=== PATIENT | female | born 1960 | race American Indian/Alaskan Native ===

== ENCOUNTER 2017-05-26 13:58 | Observation (INO) | payer OTHER ==
--- NOTE | 2017-05-26 14:45 | C.PDOC ---
History Of Present Illness 57 y/o female presents to the ER complaining of intermittent episodes of left sided numbness confined to the left face, left hand, and left lower extremities. Patient reports that she has difficulty with speech and loss of fluency for the past several days. Patient reports that the episodes last for about 1 hour. Patient states that she has an onset of generalized headache and 1 episode of vomiting today.Patient denies that she has history of diabetes and non-compliance with her medications. Patient reports that she takes Aspirin daily. Chief Complaint (Nursing): Weakness/Neurological Deficit History Per: Patient History/Exam Limitations: no limitations Onset/Duration Of Symptoms: Days Current Symptoms Are (Timing): Still Present Severity: Moderate Past Medical History Reviewed: Historical Data, Nursing Documentation, Vital Signs Vital Signs: Last Vital Signs Temp 98 F 05/26/17 19:13 Pulse 71 05/26/17 21:54 Resp 20 05/26/17 19:13 BP 121/83 05/26/17 21:54 Pulse Ox 98 05/26/17 19:13 - Medical History PMH: CHF, HTN Surgical History: No Surg Hx Family History: States: No Known Family Hx - Social History Hx Alcohol Use: Yes Hx Substance Use: No - Immunization History Hx Tetanus Toxoid Vaccination: No Hx Influenza Vaccination: Yes Hx Pneumococcal Vaccination: No Review Of Systems Except As Marked, All Systems Reviewed And Found Negative. Constitutional: Negative for: Fever, Chills Neurological: Positive for: Numbness (left-sided numbness), Headache. Negative for: Weakness, Dizziness Physical Exam - Physical Exam Appears: Non-toxic, No Acute Distress Skin: Normal Color, Warm Head: Atraumatic, Normacephalic Eye(s): bilateral: Normal Inspection, PERRL Nose: Normal Oral Mucosa: Moist Neck: Supple Chest: Symmetrical Cardiovascular: Rhythm Regular Respiratory: Normal Breath Sounds, No Accessory Muscle Use, No Rales, No Rhonchi , No Wheezing Gastrointestinal/Abdominal: Normal Exam, Soft, No Tenderness Neurological/Psych: Oriented x3, Normal Speech, Normal Cognition, Normal Cranial Nerves, Cerebellar Signs, Other (immediate and short memory intact) Gait: Other (not tested) ED Course And Treatment - Laboratory Results Result Diagrams: 05/26/17 14:57 05/26/17 14:57 ECG: Interpreted By Me, Viewed By Me ECG Rhythm: Sinus Rhythm Rate From EC (BPM) O2 Sat by Pulse Oximetry: 99 (RA) Pulse Ox Interpretation: Normal - Radiology CXR: Viewed By Me, Read By Radiologist CXR Interpretation: Yes: No Acute Disease - CT Scan/US CT - Head Other Rad Studies (CT/US): Read By Radiologist, Radiology Report Reviewed CT/US Interpretation: PROCEDURE: CT HEAD WITHOUT CONTRAST. HISTORY: TIA, WEAKNESS. COMPARISON: None available. TECHNIQUE: Axial computed tomography images were obtained through the head/brain without intravenous contrast. Radiation dose: Total exam DLP = 897.06 mGy-cm. This CT exam was performed using one or more of the following dose reduction techniques: Automated exposure control, adjustment of the mA and/or kV according to patient size, and/ or use of iterative reconstruction technique. FINDINGS: HEMORRHAGE: No intracranial hemorrhage. BRAIN: Normal saba-white matter differentiation and density are appreciated throughout the cerebrum and cerebellum with the brainstem appearing unremarkable as well. There is no mass effect. There is no suspicious extra-axial fluid collection and the midline brain anatomy appears diffusely unremarkable. VENTRICLES: Unremarkable. No hydrocephalus. CALVARIUM: Unremarkable. PARANASAL SINUSES: Unremarkable as visualized. No significant inflammatory changes. MASTOID AIR CELLS: Unremarkable as visualized. No inflammatory changes. OTHER FINDINGS: None. IMPRESSION: No acute intracranial findings are appreciated by standard CT criteria in this unenhanced exam. Follow-up CT or MRI are available given clinical history of potential brain infarction/TIA. Findings discussed with Dr. Inman 2017 at 3:30 p.m.. CTA - Head Other Rad Studies (CT/US): Read By Radiologist, Radiology Report Reviewed CT/US Interpretation: PROCEDURE: CTA HEAD AND NECK WITH CONTRAST. HISTORY: CODE STROKE ALERT. COMPARISON: None available. TECHNIQUE: Initial noncontrast head CT was performed. Subsequently, CT angiogram of the head and neck were performed after the intravenous administration of 80 mL of Omnipaque 350. Contiguous 1.5mm thick images were obtained in the axial plane of the neck. 2-D coronal and sagittal MPR images were obtained. Imaging postprocessing was performed with 3-D images also obtained. A delayed contrast head CT was also obtained. This CT exam was performed using one or more of the following dose reduction techniques: Automated exposure control, adjustment of the mA and/ or kV according to patient size, and/or use of iterative reconstruction technique. Contrast dose: 100 mL Visipaque. Radiation dose: Total exam DLP = 611.97 mGy-cm. FINDINGS: HEAD: Right: The intracranial internal carotid artery, and anterior and middle cerebral arteries are widely patent. Left: The intracranial internal carotid artery, and anterior and middle cerebral arteries are widely patent. Posterior circulation: The visualized intracranial vertebral arteries, basilar artery and posterior cerebral arteries are widely patent. Ther is no endoluminal filling defect to suggest thrombus. There is no intracranial saccular aneurysm. NECK: There is a three vessel aortic arch. There is no stenosis at the origins of the great vessels at the level of the aortic arch. Right Carotid: On the right, the common carotid, internal carotid and external carotid arteries are widely patent. There is no hemodynamically significant stenosis in the internal carotid arteries by NASCET criteria. Left Carotid: On the left, the common carotid, internal carotid and external carotid arteries are widely patent.There is no hemodynamically significant stenosis in the internal carotid arteries by NASCET criteria. The vertebral arteries are widely patent. The the vertebral arteries are codominant. The visualized soft tissues of the neck are normal. The visualized brain and cervical spine are within normal limits. The lung apices are clear. There is a multinodular thyroid gland. IMPRESSION: No CTA evidence for intraluminal thrombus, definite significant stenosis or occlusion. No hemodynamically significant stenosis in the internal carotid arteries by NASCET criteria. - Physician Consult Information Physician Contacted: Outcome Of Conversation: concurs that the patient may have TIA and that the NIH Stroke Scale is 0. She reccommended that an MRI be ordered. NIHSS Stroke Scale - Date/Time Evaluation Performed Date Performed: 05/26/17 Time Performed: 14:45 When Was NIHSS Performed: Baseline - How Severe is the Stoke Level of Consciousness: 0=Alert LOC to Questions: 0=Both comments correct LOC to commands: 0=Obeys both correctly Best Gaze: 0=Normal Visual: 0=No visual loss Facial: 0=Normal Motor Arm - Left: 0=No drift Motor Arm - Right: 0=No drift Motor Leg - Left: 0=No drift Motor Leg - Right: 0=No drift Limb Ataxia: 0=Absent Sensory: 0=Normal Best Language: 0=No aphasia Dysarthia: 0=Normal articulation Extinction & Inattention (Neglect): 0=Normal, no object Score: 0 Severity Of Stroke: 0= No Stroke Medical Decision Making Medical Decision Making: Impression: History compelling for TIA Plan: -Admit patient for workup Test Results -Head CT- neg for acute stroke Disposition Doctor Will See Patient In The: Hospital - Disposition Disposition: HOSPITALIZED Disposition Time: 15:32 Condition: FAIR - Clinical Impression Clinical Impression: TIA (transient ischemic attack) - Scribe Statement The provider has reviewed the documentation as recorded by the Oliver Martinez Provider Attestation: All medical record entries made by the Oliver were at my direction and personally dictated by me. I have reviewed the chart and agree that the record accurately reflects my personal performance of the history, physical exam, medical decision making, and the department course for this patient. I have also personally directed, reviewed, and agree with the discharge instructions and disposition.
[2017-05-26 15:03] LABS: BASO % 0.4 % (0.0-2.0); EOS # 0.1 K/uL (0.0-0.7); EOS % 1.4 % (0.0-4.0); HEMOGLOBIN 12.5 g/dL (11.0-16.0); LYMPH # 1.1 K/uL (1.0-4.3); LYMPH % 18.2 % (20.0-40.0); MEAN CELL VOLUME 83.4 fL (81.0-99.0); MEAN CORPUSCULAR HEMOGLOBIN 27.2 pg (27.0-31.0); MEAN CORPUSCULAR HGB CONC 32.6 g/dL (33.0-37.0); MEAN PLATELET VOLUME 8.5 fL (7.2-11.7); MONO # 0.4 K/uL (0.0-0.8); MONO % 7.3 % (0.0-10.0); NEUT # 4.4 K/uL (1.8-7.0); NEUT % 72.7 % (50.0-75.0); RBC 4.58 Mil/uL (3.80-5.20); RED CELL DISTRIBUTION WIDTH 17.5 % (11.5-14.5)
[2017-05-26] MEDS ORDERED: Sodium Chloride 0.9% 1,000 ML ONE (15:07)
[2017-05-26] MEDS ORDERED: Iodixanol 320 MG/ML 100 ML BOTTLE IV ONE (15:14)
[2017-05-26 15:16] LABS: INR 1.1; PROTHROMBIN TIME 12.3 SECONDS (9.7-12.2)
[2017-05-26 15:20] LABS: ALBUMIN 4.5 g/dL (3.5-5.0); ALT/SGPT 21 U/L (9-52); AST/SGOT 34 U/L (14-36); BLOOD UREA NITROGEN 26 mg/dL (7-17); CALCIUM 8.8 mg/dl (8.6-10.4); GFR AFRICAN-AMERICAN > 60; GFR NON-AFRICAN AMERICAN 51; HDL CHOLESTEROL 42 mg/dL (30-70)
[2017-05-26 15:30] LABS: B-TYPE NATRIURETIC PEPTIDE 101 pg/mL (0-900)
[2017-05-26 15:31] LABS: LDL CHOLESTEROL 120 mg/dL (0-129)
--- NOTE | 2017-05-26 15:37 | CT ---
PROCEDURE: CT HEAD WITHOUT CONTRAST. HISTORY: TIA, WEAKNESS COMPARISON: None available. TECHNIQUE: Axial computed tomography images were obtained through the head/brain without intravenous contrast. Radiation dose: Total exam DLP = 897.06 mGy-cm. This CT exam was performed using one or more of the following dose reduction techniques: Automated exposure control, adjustment of the mA and/or kV according to patient size, and/or use of iterative reconstruction technique. FINDINGS: HEMORRHAGE: No intracranial hemorrhage. BRAIN: Normal saba-white matter differentiation and density are appreciated throughout the cerebrum and cerebellum with the brainstem appearing unremarkable as well. There is no mass effect. There is no suspicious extra-axial fluid collection and the midline brain anatomy appears diffusely unremarkable. VENTRICLES: Unremarkable. No hydrocephalus. CALVARIUM: Unremarkable. PARANASAL SINUSES: Unremarkable as visualized. No significant inflammatory changes. MASTOID AIR CELLS: Unremarkable as visualized. No inflammatory changes. OTHER FINDINGS: None. IMPRESSION: No acute intracranial findings are appreciated by standard CT criteria in this unenhanced exam. Follow-up CT or MRI are available given clinical history of potential brain infarction/TIA. Findings discussed with Dr. Inman 05/26/2017 at 3:30 p.m..
--- NOTE | 2017-05-26 16:01 | CT ---
PROCEDURE: CTA HEAD AND NECK WITH CONTRAST HISTORY: CODE STROKE ALERT COMPARISON: None available. TECHNIQUE: Initial noncontrast head CT was performed. Subsequently, CT angiogram of the head and neck were performed after the intravenous administration of 80 mL of Omnipaque 350. Contiguous 1.5mm thick images were obtained in the axial plane of the neck. 2-D coronal and sagittal MPR images were obtained. Imaging postprocessing was performed with 3-D images also obtained. A delayed contrast head CT was also obtained. This CT exam was performed using one or more of the following dose reduction techniques: Automated exposure control, adjustment of the mA and/or kV according to patient size, and/or use of iterative reconstruction technique. Contrast dose: 100 mL Visipaque Radiation dose: Total exam DLP = 611.97 mGy-cm. FINDINGS: HEAD: Right: The intracranial internal carotid artery, and anterior and middle cerebral arteries are widely patent. Left: The intracranial internal carotid artery, and anterior and middle cerebral arteries are widely patent. Posterior circulation: The visualized intracranial vertebral arteries, basilar artery and posterior cerebral arteries are widely patent. Ther is no endoluminal filling defect to suggest thrombus. There is no intracranial saccular aneurysm. NECK: There is a three vessel aortic arch. There is no stenosis at the origins of the great vessels at the level of the aortic arch. Right Carotid: On the right, the common carotid, internal carotid and external carotid arteries are widely patent. There is no hemodynamically significant stenosis in the internal carotid arteries by NASCET criteria. Left Carotid: On the left, the common carotid, internal carotid and external carotid arteries are widely patent.There is no hemodynamically significant stenosis in the internal carotid arteries by NASCET criteria. The vertebral arteries are widely patent. The the vertebral arteries are codominant. The visualized soft tissues of the neck are normal. The visualized brain and cervical spine are within normal limits. The lung apices are clear. There is a multinodular thyroid gland. IMPRESSION: No CTA evidence for intraluminal thrombus, definite significant stenosis or occlusion. No hemodynamically significant stenosis in the internal carotid arteries by NASCET criteria.
--- NOTE | 2017-05-26 16:38 | RAD ---
HISTORY: TIA. Portable study 16:03. COMPARISON: No prior. FINDINGS: LUNGS: No active pulmonary disease. PLEURA: No significant pleural effusion identified, no pneumothorax apparent. CARDIOVASCULAR: No radiographic findings to suggest acute or significant cardiovascular disease. Incidental Finding(s): Postoperative changes related to sternotomy. OSSEOUS STRUCTURES: No significant abnormalities. VISUALIZED UPPER ABDOMEN: Normal. OTHER FINDINGS: None. IMPRESSION: No active disease.
--- NOTE | 2017-05-26 23:32 | CP.PCM.HP ---
History of Present Illness - History of Present Illness History of Present Illness: CC: Left arm/ leg and face numbness since 2 days HPI: 57 y/o AA female who had h/o MVR, HTN, Hyperlipidemia complaint with diet, medication and follow up at [facility] presents to the ER complaining of intermittent episodes of left sided numbness confined to the left face, left hand, and left lower extremities. Patient reports that she has difficulty with speech and loss of fluency for the past several days. Patient reports that the episodes last for about 1 hour. Patient states that she has an onset of generalized headache and 1 episode of vomiting today.Patient denies that she has history of diabetes and non-compliance with her medications. Patient reports that she takes Aspirin daily. Present on Admission - Present on Admission Any Indicators Present on Admission: Yes Review of Systems - Review of Systems Systems not reviewed;Unavailable: Acuity of Condition - Constitutional Constitutional: absent: As Per HPI, Anorexia, Chills, Daytime Sleepiness, Excessive Sweating, Fatigue, Fever, Frequent Falls, Headache, Increased Appetite , Lethargy, Malaise, Night Sweats, Snoring, Sleep Apnea, Weight Gain, Weight Loss, Weakness, Other - EENT Eyes: absent: As Per HPI, Blind Spots, Blurred Vision, Change in Vision, Decreased Night Vision, Diplopia, Discharge, Dry Eye, Exophthalmos, Floaters, Irritation, Itchy Eyes, Loss of Peripheral Vision, Pain, Photophobia, Requires Corrective Lenses, Sees Flashes, Spots in Vision, Tunnel Vision, Other Visual Disturbances, Loss of Vision, Other Ears: absent: As Per HPI, Decreased Hearing, Ear Discharge, Ear Pain, Tinnitus, Abnormal Hearing, Disequilibrium, Dizziness, Other Nose/Mouth/Throat: absent: As Per HPI, Epistaxis, Nasal Congestion, Nasal Discharge, Nasal Obstruction, Nasal Trauma, Nose Pain, Post Nasal Drip, Sinus Pain, Sinus Pressure, Bleeding Gums, Change in Voice, Dental Pain, Dry Mouth, Dysphagia, Halitosis, Hoarsness, Lip Swelling, Mouth Lesions, Mouth Pain, Odynophagia, Sore Throat, Throat Swelling, Tongue Swelling, Facial Pain, Neck Pain, Neck Mass, Other - Cardiovascular Cardiovascular: absent: As Per HPI, Acrocyanosis, Chest Pain, Chest Pain at Rest , Chest Pain with Activity, Claudication, Diaphoresis, Dyspnea, Dyspnea on Exertion, Edema, Irregular Heart Rhythm, Pain Radiating to Arm/Neck/Jaw, Leg Edema, Leg Ulcers, Lightheadedness, Orthopnea, Palpitations, Paroxysmal Nocturnal Dyspnea, Pedal Edema, Radiating Pain, Rapid Heart Rate, Slow Heart Rate, Syncope, Other - Respiratory Respiratory: absent: As Per HPI, Cough, Dyspnea, Hemoptysis, Dyspnea on Exertion , Wheezing, Snoring, Stridor, Pain on Inspiration, Chest Congestion, Excessive Mucous Production, Change in Mucous Color, Pain with Coughing, Other - Gastrointestinal Gastrointestinal: absent: As Per HPI, Abdominal Pain, Belching, Bloating, Change in Bowel Habits, Change in Stool Character, Coffee Ground Emesis, Constipation, Cramping, Diarrhea, Dyspepsia, Dysphagia, Early Satiety, Excessive Flatus, Fecal Incontinence, Heartburn, Hematemesis, Hematochezia, Loose Stools, Melena, Nausea, Odynophagia, Temesmus, Vomiting, Other - Neurological Neurological: Numbness, Focal Weakness, Tingling, Weakness - Psychiatric Psychiatric: absent: As Per HPI, Abnormal Sleep Pattern, Anhedonia, Anxiety, Auditory Hallucinations, Behavioral Changes, Change in Appetite, Change in Libido, Confusion, Depression, Difficulty Concentrating, Hallucinations, Homicidal Ideation, Hopelessness, Irritability, Memory Loss, Mood Swings, Panic Attacks, Paranoia, Suicidal Ideation, Visual Hallucinations, Tactile Hallucinations, Other Past Patient History - Past Medical History & Family History Past Medical History?: Yes - Past Social History Smoking Status: Never Smoked - CARDIAC Hx Cardiac Disorders: Yes Hx Congestive Heart Failure: Yes Hx Hypertension: Yes - PULMONARY Hx Respiratory Disorders: No - NEUROLOGICAL Hx Neurological Disorder: No - HEENT Hx HEENT Problems: No - RENAL Hx Chronic Kidney Disease: No - ENDOCRINE/METABOLIC Hx Endocrine Disorders: No - HEMATOLOGICAL/ONCOLOGICAL Hx Blood Disorders: No - INTEGUMENTARY Hx Dermatological Problems: No - MUSCULOSKELETAL/RHEUMATOLOGICAL Hx Musculoskeletal Disorders: No Hx Falls: No - GASTROINTESTINAL Hx Gastrointestinal Disorders: No - GENITOURINARY/GYNECOLOGICAL Hx Genitourinary Disorders: No - PSYCHIATRIC Hx Psychophysiologic Disorder: No Hx Substance Use: No - SURGICAL HISTORY Hx Surgeries: Yes Hx Section: Yes Hx Hysterectomy: Yes Hx Tubal Ligation: Yes Other/Comment: valve repair - ANESTHESIA Hx Anesthesia: Yes Hx Anesthesia Reactions: No Hx Malignant Hyperthermia: No Meds Allergies/Adverse Reactions: Allergies Allergy/AdvReac Type Severity Reaction Status Date / Time No Known Allergies Allergy Verified 05/26/17 14:20 Physical Exam - Constitutional Appears: No Acute Distress - Head Exam Head Exam: ATRAUMATIC, NORMAL INSPECTION, NORMOCEPHALIC - Eye Exam Eye Exam: EOMI, Normal appearance, PERRL Pupil Exam: NORMAL ACCOMODATION, PERRL - Respiratory Exam Respiratory Exam: Clear to Auscultation Bilateral, NORMAL BREATHING PATTERN Additional comments: midline scar of previous surgery - GI/Abdominal Exam GI & Abdominal Exam: Normal Bowel Sounds, Soft. absent: Tenderness - Neurological Exam Neurological exam: Alert, CN II-XII Intact, Normal Gait, Oriented x3, Reflexes Normal - Psychiatric Exam Psychiatric exam: Normal Affect, Normal Mood Results - Vital Signs Recent Vital Signs: Last Vital Signs Temp 98 F 05/26/17 19:13 Pulse 71 05/26/17 21:54 Resp 20 05/26/17 19:13 BP 121/83 05/26/17 21:54 Pulse Ox 98 05/26/17 19:13 - Labs Result Diagrams: 05/26/17 14:57 05/26/17 14:57 Labs: Laboratory Results - last 24 hr 05/26/17 05/26/17 05/26/17 14:57 14:57 14:57 WBC 6.0 RBC 4.58 Hgb 12.5 Hct 38.2 MCV 83.4 MCH 27.2 MCHC 32.6 L RDW 17.5 H Plt Count 254 MPV 8.5 Neut % (Auto) 72.7 Lymph % (Auto) 18.2 L [place] % (Auto) 7.3 Eos % (Auto) 1.4 Baso % (Auto) 0.4 Neut # 4.4 Lymph # 1.1 George # 0.4 Eos # 0.1 Baso # 0.0 PT 12.3 H INR 1.1 APTT 28 Sodium 137 Potassium 4.6 Chloride 102 Carbon Dioxide 24 Anion Gap 16 BUN 26 H Creatinine 1.1 Est GFR ( Amer) > 60 Est GFR (Non-Af Amer) 51 Random Glucose 112 H Hemoglobin A1c Calcium 8.8 Total Bilirubin 0.8 AST 34 ALT 21 Alkaline Phosphatase 58 Troponin I 0.0130 NT-Pro-B Natriuret Pep 101 Total Protein 8.8 H Albumin 4.5 Globulin 4.3 H Albumin/Globulin Ratio 1.0 Triglycerides 60 Cholesterol 190 LDL Cholesterol Direct 120 HDL Cholesterol 42 Blood Type Antibody Screen 05/26/17 05/26/17 14:57 14:59 WBC RBC Hgb Hct MCV MCH MCHC RDW Plt Count MPV Neut % (Auto) Lymph % (Auto) George % (Auto) Eos % (Auto) Baso % (Auto) Neut # Lymph # George # Eos # Baso # PT INR APTT Sodium Potassium Chloride Carbon Dioxide Anion Gap BUN Creatinine Est GFR ( Amer) Est GFR (Non-Af Amer) Random Glucose Hemoglobin A1c 6.4 Calcium Total Bilirubin AST ALT Alkaline Phosphatase Troponin I NT-Pro-B Natriuret Pep Total Protein Albumin Globulin Albumin/Globulin Ratio Triglycerides Cholesterol LDL Cholesterol Direct HDL Cholesterol Blood Type O POSITIVE Antibody Screen Negative Assessment & Plan (1) H/O mitral valve replacement Assessment and Plan: back in 2001 Status: Acute (2) HTN (hypertension) Status: Acute (3) Hyperlipidemia Status: Acute (4) TIA (transient ischemic attack) Status: Acute - Assessment and Plan (Free Text) Plan: ADMIT ECHO. CARDIOLOGY EVAL, NEURO check
[2017-05-27] MEDS ORDERED: Enoxaparin 40 mg Syringe SC SCH (10:00)
--- NOTE | 2017-05-27 13:09 | CP.PCM.CON ---
History of Present Illness - History of Present Illness History of Present Illness: 57 yr old woman who presented with subacute aphasia, over the last several days, and new onset left arm numbness and tingling since this morning at 9am, with all symptoms resolved by the time the patient arrived in the ER. Code stroke was called and since her deficits had resolved, we decided she was not a TPA candidate. She had an NIH stroke scale of 0 per my assessment and I was able to see her several minutes after she arrived in the ER. CT, CTA and MRI Brain were ordered as well as echo, dopplers. CT and CTA are normal. Patient's daughters were presented and they agreed that she was having dysarthria, on and off for several days. She denies headache, paraesthesias, nausea, vomiting, diarrhea, weakness or aphasia. PMH/PSH: Htn, MVR, Hyperlipidemia FH/SH: no tobacco, no etoh All: nkda ON exam: normal neuro exam. Past Patient History - Past Social History Smoking Status: Never Smoked - CARDIAC Hx Congestive Heart Failure: Yes Hx Hypertension: Yes - PSYCHIATRIC Hx Substance Use: No - SURGICAL HISTORY Hx Surgeries: Yes Hx Section: Yes Hx Hysterectomy: Yes Hx Tubal Ligation: Yes Other/Comment: valve repair - ANESTHESIA Hx Anesthesia: Yes Hx Anesthesia Reactions: No Hx Malignant Hyperthermia: No Meds Allergies/Adverse Reactions: Allergies Allergy/AdvReac Type Severity Reaction Status Date / Time No Known Allergies Allergy Verified 05/26/17 14:20 - Medications Medications: Current Medications Aspirin (Aspirin) 325 mg PO DAILY SITA Last Admin: 05/26/17 15:16 Dose: Not Given Results - Vital Signs Recent Vital Signs: Last Vital Signs Temp 98.6 F 05/26/17 14:14 Pulse 74 05/26/17 16:10 Resp 16 05/26/17 16:10 BP 121/77 05/26/17 16:10 Pulse Ox 99 05/26/17 17:02 - Labs Result Diagrams: 05/26/17 14:57 05/26/17 14:57 Labs: Laboratory Results - last 24 hr 05/26/17 05/26/17 05/26/17 14:57 14:57 14:57 WBC 6.0 RBC 4.58 Hgb 12.5 Hct 38.2 MCV 83.4 MCH 27.2 MCHC 32.6 L RDW 17.5 H Plt Count 254 MPV 8.5 Neut % (Auto) 72.7 Lymph % (Auto) 18.2 L [place] % (Auto) 7.3 Eos % (Auto) 1.4 Baso % (Auto) 0.4 Neut # 4.4 Lymph # 1.1 [place] # 0.4 Eos # 0.1 Baso # 0.0 PT 12.3 H INR 1.1 APTT 28 Sodium 137 Potassium 4.6 Chloride 102 Carbon Dioxide 24 Anion Gap 16 BUN 26 H Creatinine 1.1 Est GFR ( Amer) > 60 Est GFR (Non-Af Amer) 51 Random Glucose 112 H Hemoglobin A1c Calcium 8.8 Total Bilirubin 0.8 AST 34 ALT 21 Alkaline Phosphatase 58 Troponin I 0.0130 NT-Pro-B Natriuret Pep 101 Total Protein 8.8 H Albumin 4.5 Globulin 4.3 H Albumin/Globulin Ratio 1.0 Triglycerides 60 Cholesterol 190 LDL Cholesterol Direct 120 HDL Cholesterol 42 Blood Type Antibody Screen 05/26/17 05/26/17 14:57 14:59 WBC RBC Hgb Hct MCV MCH MCHC RDW Plt Count MPV Neut % (Auto) Lymph % (Auto) [place] % (Auto) Eos % (Auto) Baso % (Auto) Neut # Lymph # [place] # Eos # Baso # PT INR APTT Sodium Potassium Chloride Carbon Dioxide Anion Gap BUN Creatinine Est GFR ( Amer) Est GFR (Non-Af Amer) Random Glucose Hemoglobin A1c 6.4 Calcium Total Bilirubin AST ALT Alkaline Phosphatase Troponin I NT-Pro-B Natriuret Pep Total Protein Albumin Globulin Albumin/Globulin Ratio Triglycerides Cholesterol LDL Cholesterol Direct HDL Cholesterol Blood Type O POSITIVE Antibody Screen Negative Assessment & Plan - Assessment and Plan (Free Text) Assessment: 57 yr old woman with most likely ischemic event involving Right MCA territory , tia, resolved. She is high risk due to her cardiac history so we will do the stroke workup. Plan: 1. MRi Brain without contrast. 2. ECho 3. Carotid Dopplers. 4. Start aspirin 5. Hold bp meds and keep bp at 180-190/90 6. Iv fluids with normal saline at 100 ccs per hour. 7. Admit to telemetry Thank you for this interesting consult. We will follow Dr. Mohit Corrigan MD, DPN.
--- NOTE | 2017-05-27 14:24 | CP.PCM.PN ---
Subjective - Date & Time of Evaluation Date of Evaluation: 05/27/17 Time of Evaluation: 13:00 - Subjective Subjective: Neurology progress note for Dr. Wong: Patient was seen and examined at bedside today. Patient stated that she has had no symptoms of aphasia or weakness since these symptoms resolved in the ED. Patient stated that she refused the MRI because she wanted her human resource internship in the city to be the one to order the test. After further discussion the patient revealed that she has had a cardic valve replacement and has some sort of metal wire still left in her chest. She is unsure if this wire compatible with MRI imaging. It was suggested that she reach out to her human resource internship to see. She denies headache, paraesthesias, nausea, vomiting, diarrhea, weakness or aphasia. She is otherwise doing well. Objective - Vital Signs/Intake and Output Vital Signs (last 24 hours): Temp Pulse Resp BP Pulse Ox 98.3 F 85 20 117/79 97 05/27/17 10:35 05/27/17 10:35 05/27/17 07:10 05/27/17 10:36 05/27/17 10:35 Intake and Output: 05/27/17 05/27/17 06:59 18:59 Intake Total 240 Balance 240 - Medications Medications: Current Medications Aspirin (Aspirin) 325 mg PO DAILY [facility] Last Admin: 05/27/17 10:30 Dose: Not Given Aspirin (Ecotrin) 81 mg PO DAILY [facility] Last Admin: 05/27/17 10:37 Dose: 81 mg Carvedilol (Coreg) 25 mg PO BID [facility] Last Admin: 05/27/17 10:36 Dose: 25 mg Doxazosin Mesylate (Cardura) 8 mg PO [facility] Enoxaparin Sodium (Lovenox) 40 mg SC DAILY [facility] Last Admin: 05/27/17 10:37 Dose: Not Given Furosemide (Lasix) 40 mg PO DAILY [facility] Last Admin: 05/27/17 10:36 Dose: 40 mg Losartan Potassium (Cozaar) 50 mg PO DAILY [facility] Last Admin: 05/27/17 10:38 Dose: Not Given Spironolactone (Aldactone) 25 mg PO DAILY [facility] Last Admin: 05/27/17 10:36 Dose: 25 mg - Labs Labs: 05/26/17 14:57 05/26/17 14:57 PT 12.3 SECONDS (9.7-12.2) H 05/26/17 14:57 INR 1.1 05/26/17 14:57 APTT 28 SECONDS (21-34) 05/26/17 14:57 - Constitutional Appears: Non-toxic, No Acute Distress - Head Exam Head Exam: ATRAUMATIC, NORMAL INSPECTION - Eye Exam Eye Exam: EOMI. absent: Nystagmus Pupil Exam: NORMAL ACCOMODATION, PERRL - ENT Exam ENT Exam: Mucous Membranes Moist - Respiratory Exam Respiratory Exam: NORMAL BREATHING PATTERN - GI/Abdominal Exam GI & Abdominal Exam: Soft, Normal Bowel Sounds. absent: Tenderness - Extremities Exam Extremities Exam: Normal Inspection - Back Exam Back Exam: NORMAL INSPECTION - Neurological Exam Neurological Exam: Alert, Awake, CN II-XII Intact, Normal Gait, Oriented x3, Reflexes Normal Neuro motor strength exam: Left Upper Extremity: 5, Right Upper Extremity: 5, Left Lower Extremity: 5, Right Lower Extremity: 5 Additional comments: No pronater drift, good muscle strenth is all extremities, no droop, sensation in tact. NIHSS score = 0 - Psychiatric Exam Psychiatric exam: Normal Affect, Normal Mood Assessment and Plan (1) TIA (transient ischemic attack) Assessment & Plan: -Symptoms have resolved -Patient is to take Aspirin and Plavix daily (patient is refusing plavix as she would like to check with her human resource internship first) It was explained to the patient that because of her risk factors and recent event of TIA she is high risk for stoke. -Will review ECHO, carotid Doppler, CTA studies -MRI refused - patient also has a wire in chest which might not be compatible with MRI, advised to reach out to her human resource internship -Head CT 05/26 - no evidence of intracranial bleed Status: Acute (2) H/O mitral valve replacement Status: Acute (3) HTN (hypertension) Status: Acute (4) Hyperlipidemia Assessment & Plan: Suggest statin therapy Status: Acute
[2017-05-27 16:07] VITALS: BP 124/90; RESP 18; TEMP 98.9; O2SAT 100
[2017-05-27 16:18] VITALS: PULSE 75
--- NOTE | 2017-05-27 23:19 | CP.PCM.DIS ---
Provider - Provider Date of Admission: 05/26/17 15:29 Attending physician: Leonides Longoria MD Diagnosis - Discharge Diagnosis (1) H/O mitral valve replacement Status: Acute (2) HTN (hypertension) Status: Acute (3) Hyperlipidemia Status: Acute (4) TIA (transient ischemic attack) Status: Acute Hospital Course - Lab Results Lab Results: Most Recent Lab Values WBC 6.0 K/uL (4.8-10.8) 05/26/17 14:57 RBC 4.58 Mil/uL (3.80-5.20) 05/26/17 14:57 Hgb 12.5 g/dL (11.0-16.0) 05/26/17 14:57 Hct 38.2 % (34.0-47.0) 05/26/17 14:57 MCV 83.4 fL (81.0-99.0) 05/26/17 14:57 MCH 27.2 pg (27.0-31.0) 05/26/17 14:57 MCHC 32.6 g/dL (33.0-37.0) L 05/26/17 14:57 RDW 17.5 % (11.5-14.5) H 05/26/17 14:57 Plt Count 254 K/uL (130-400) 05/26/17 14:57 MPV 8.5 fL (7.2-11.7) 05/26/17 14:57 Neut % (Auto) 72.7 % (50.0-75.0) 05/26/17 14:57 Lymph % (Auto) 18.2 % (20.0-40.0) L 05/26/17 14:57 [place] % (Auto) 7.3 % (0.0-10.0) 05/26/17 14:57 Eos % (Auto) 1.4 % (0.0-4.0) 05/26/17 14:57 Baso % (Auto) 0.4 % (0.0-2.0) 05/26/17 14:57 Neut # 4.4 K/uL (1.8-7.0) 05/26/17 14:57 Lymph # 1.1 K/uL (1.0-4.3) 05/26/17 14:57 [place] # 0.4 K/uL (0.0-0.8) 05/26/17 14:57 Eos # 0.1 K/uL (0.0-0.7) 05/26/17 14:57 Baso # 0.0 K/uL (0.0-0.2) 05/26/17 14:57 PT 12.3 SECONDS (9.7-12.2) H 05/26/17 14:57 INR 1.1 05/26/17 14:57 APTT 28 SECONDS (21-34) 05/26/17 14:57 Sodium 137 mmol/L (132-148) 05/26/17 14:57 Potassium 4.6 mmol/L (3.6-5.2) 05/26/17 14:57 Chloride 102 mmol/L (98-107) 05/26/17 14:57 Carbon Dioxide 24 mmol/L (22-30) 05/26/17 14:57 Anion Gap 16 (10-20) 05/26/17 14:57 BUN 26 mg/dL (7-17) H 05/26/17 14:57 Creatinine 1.1 mg/dL (0.7-1.2) 05/26/17 14:57 Est GFR ( Amer) > 60 05/26/17 14:57 Est GFR (Non-Af Amer) 51 05/26/17 14:57 POC Glucose (mg/dL) 98 mg/dL (65-110) 05/27/17 16:29 Random Glucose 112 mg/dL (65-105) H 05/26/17 14:57 Hemoglobin A1c 6.4 % (4.2-6.5) 05/26/17 14:57 Calcium 8.8 mg/dl (8.6-10.4) 05/26/17 14:57 Total Bilirubin 0.8 mg/dL (0.2-1.3) 05/26/17 14:57 AST 34 U/L (14-36) 05/26/17 14:57 ALT 21 U/L (9-52) 05/26/17 14:57 Alkaline Phosphatase 58 U/L (38-126) 05/26/17 14:57 Troponin I 0.0130 ng/mL (0.00-0.120) 05/26/17 14:57 NT-Pro-B Natriuret Pep 101 pg/mL (0-900) 05/26/17 14:57 Total Protein 8.8 g/dL (6.3-8.3) H 05/26/17 14:57 Albumin 4.5 g/dL (3.5-5.0) 05/26/17 14:57 Globulin 4.3 gm/dL (2.2-3.9) H 05/26/17 14:57 Albumin/Globulin Ratio 1.0 (1.0-2.1) 05/26/17 14:57 Triglycerides 60 mg/dL (0-149) 05/26/17 14:57 Cholesterol 190 mg/dL (0-199) 05/26/17 14:57 LDL Cholesterol Direct 120 mg/dL (0-129) 05/26/17 14:57 HDL Cholesterol 42 mg/dL (30-70) 05/26/17 14:57 Blood Type O POSITIVE 05/26/17 14:59 Antibody Screen Negative 05/26/17 14:59 - Hospital Course Hospital Course: Pt seen and examined, is for discharge today -Symptoms have resolved -Patient is to take Aspirin and Plavix daily (patient is refusing plavix as she would like to check with her dispatch manager first) It was explained to the patient that because of her risk factors and recent event of TIA she is high risk for stoke. -Will review ECHO, carotid Doppler, CTA studies -MRI refused - patient also has a wire in chest which might not be compatible with MRI, advised to reach out to her dispatch manager -Head CT 05/26 - no evidence of intracranial bleed Discharge Exam - Head Exam Head Exam: ATRAUMATIC, NORMAL INSPECTION Discharge Plan - Follow Up Plan Condition: FAIR Disposition: HOME/ ROUTINE Instructions: Clopidogrel (By mouth), Rosuvastatin (By mouth), Transient Ischemic Attack (DC), Heart Failure (DC), Heart Healthy Diet (DC) Additional Instructions: Follow up with primary medical doctor in 1 week. Referrals: Leonides Longoria MD [Staff Provider] - Mohit Wong MD [Staff Provider] -
== END 2017-05-27 18:54 | disposition home or self-care (01) ==
LOC: C.ER 13:58 → C.9E 15:29 → C.6T 18:20
PROVIDERS: ADMIT Internal Medicine; ATTEND Internal Medicine
DX: G45.9 Transient cerebral ischemic attack, unspecified (principal); I50.9 Heart failure, unspecified; I11.0 Hypertensive heart disease with heart failure; E78.5 Hyperlipidemia, unspecified
CPT/HCPCS: 70450; 70496; 70498; 71045; 80053; 80061; 82948; 83036; 83880; 84484; 85025; 85610; 85730; 86850; 86900; 93306; 93880; 97116; 97161; 97165; 97530; 99285; G0378; G8978; G8979; G8980; G8987; G8988; G8989; Q9967